=== PATIENT | female | born 1990 | race Caucasian/White ===

== ENCOUNTER 2022-02-28 17:12 | Outpatient (REF) | payer BC, SELFPAY ==
[2022-02-28 19:57] LABS: TSH (W/Ref FT4) 1.27 uIU/mL (0.36-3.74)
== END 2022-02-28 17:13 | disposition home or self-care (01) ==
LOC: LBN 17:12
PROVIDERS: Nurse Practitioner Adult Health; PCP Internal Medicine; Visit Provider Internal Medicine
DX: F43.23 Adjustment disorder with mixed anxiety and depressed mood (principal); F41.8 Other specified anxiety disorders
CPT/HCPCS: 84443

== ENCOUNTER 2022-03-28 02:14 | Outpatient (CLI) | payer BC, SELFPAY ==
[2022-03-28 16:20] LABS: HCT 40.9 % (36.0-46.0); HGB 13.8 g/dL (11.2-15.7); MCH 31.9 pg (27.0-33.0); MCHC 33.7 % (32.0-36.0); MCV 95 fL (80-95); MPV 9.2 fL (8.0-11.0); Platelet Count 179 10^3/uL (130-400); RBC 4.32 10^6/uL (3.93-5.22); RDW-SD 41.6 fL; WBC 6.93 10^3/uL (4.4-10.8)
[2022-03-28 16:22] LABS: ALT 16 U/L (14-59); AST 15 U/L (15-37); Albumin 4.3 g/dL (3.4-5.0); Alkaline Phosphatase 56 U/L (46-116); Anion Gap 6.9 mmol/L (3-11); BUN 15 mg/dL (7-18); Bilirubin, Total 0.3 mg/dL (0.2-1.0); CO2 29.1 mmol/L (21.0-32.0); CREATININE 0.7 mg/dL (0.55-1.02); Calcium 8.8 mg/dL (8.5-10.1); Chloride 99 mmol/L (98-107); Glucose 96 mg/dL (74-106); Potassium 3.5 mmol/L (3.5-5.1); Sodium 135 mmol/L (136-145); Total Protein 7.3 g/dL (6.4-8.2)
== END 2022-03-28 02:15 | disposition home or self-care (01) ==
LOC: LBO 02:14
PROVIDERS: PCP Internal Medicine; Visit Provider Internal Medicine
DX: R23.8 Other skin changes (principal); F43.23 Adjustment disorder with mixed anxiety and depressed mood; R23.3 Spontaneous ecchymoses
CPT/HCPCS: 36415; 80053; 85027

== ENCOUNTER 2022-05-28 11:29 | Outpatient (REF) | payer BC, SELFPAY ==
--- NOTE | 2022-05-28 10:45 | PAPFT_PTH ---
PATIENT: Harrison Logan LOC: [facility] U#:[id number] AGE/SX: 32/F ROOM: RE05/28/[address]: Vibha Payne NP : 1990 BED: DIS: 05/28/2022 SPEC #: [id number] RECD: 05/28/22 12:49 STATUS: BILLY REOsmani #: [id number] PATRICIA: 05/28/22 10:[address]: Vibah Payne NP DEPT: [facility] Cytology RECD BY: Ashley Montes ENTERED: 05/28/22 12:49 SP TYPE: PAPFT OT DR: Brittani Moulton APRN Tissues: 1 - CX/ENDOCX FOR PAP SMEARS Procedures: PAP THIN PREP/UVM Screening HPV DNA PROBE Comments: [id number]
== END 2022-05-28 11:30 | disposition home or self-care (01) ==
LOC: LBN 11:29
PROVIDERS: PCP Nurse Practitioner Adult Health; Visit Provider Nurse Practitioner Women's Health
DX: Z12.4 Encounter for screening for malignant neoplasm of cervix (principal); N76.0 Acute vaginitis; Z11.51 Encounter for screening for human papillomavirus (HPV)
CPT/HCPCS: 88142; 87624

== ENCOUNTER → 2023-12-02 02:51 | Outpatient (CLI) | payer BC, SELFPAY ==
--- NOTE | 2023-12-02 08:00 | DI.MAMMO_ITS ---
Exam(s) US BREAST RT COMPLETE MG MAMMO DIAGNOSTIC BI EXAM: MG MAMMO DIAGNOSTIC BI AND COMPLETE RIGHT BREAST ULTRASOUND CLINICAL HISTORY: R breast mass,n63.10 at 6 oclock 2 cm from nipple on rt. TECHNIQUE: BOTH CC AND MLO mammographic images BOTH BREAST were obtained with 3D tomosynthesis techn ique and utilizing computer aided detection (CAD). ALSO spot compression 3D view of right breast. Complete right breast ultrasound was performed including all 4 quadrants as well as the retroareolar region and right axilla. COMPARISON: None. This is a baseline diagnostic mammogram on this 33-year-old patient. Her provide r apparently felt a lump at 6 o'clock position of the right breast. The patient herself claims that she does not feel this lump when she self examines. FINDINGS: DIAGNOSTIC BILATERAL MAMMOGRAM: The fibroglandular pattern is dense, this somewhat decreasing the sensitivity of the mammogram for fi nding hidden underlying lesions. There are no obvious focal spiculated masses nor malignant-appearing microcalcification groups in eit her breast. No significant architectural distortion or skin thickening-traction. COMPLETE RIGHT BREAST ULTRASOUND: There is no evidence of solid or significant cystic lesions in all 4 quadrants of the right breast. No focal findings on ultrasound examination at the 6 o'clock position which is apparently where there is a palpable lump. Scanning of the right axilla is negative for adenopathy. IMPRESSION: 1. Dense bilateral fibroglandular tissue. No obvious radiographic evidence of malignancy. 2. Negative complete right breast ultrasound The patient was informed of the findings and follow-up recommendations by myself prior to leaving the department today. Two-benign findings Breast Density - Category C - Heterogeneously dense Breast density Category C or D implies that the patient has dense breast tissue. Dense breast tissue can make it harder to find cancer on a mammogram. Dense breast tissue is also associated with an incr eased risk of breast cancer. This information about the result of the mammogram report was provided to the patient to raise their awareness. Use this report when you speak with the patient about their risks for breast cancer, which includes their family history. At that time, you may recommend additional screening tests (Ultrasoun d or MRI) as these tests may add significant information. A negative radiographic report should not delay biopsy if a dominant or clinically suspicious mass is present. Up to ten percent of cancers are not identified on mammography. A negative report may reinforce clinical impression. Adenosis and dense breasts may obscure an underlying neoplasm. False positive reports average 6 to 10%. Patient will receive a letter notifying them of these results.
== END ==
PROVIDERS: PCP Nurse Practitioner Adult Health; Visit Provider Nurse Practitioner Adult Health
DX: N63.11 Unspecified lump in the right breast, upper outer quadrant (principal); Z12.31 Encounter for screening mammogram for malignant neoplasm of breast
CPT/HCPCS: 76642; 77062; 77066; G0279

== ENCOUNTER 2024-04-24 01:07 | Outpatient (CLI) | payer BC, SELFPAY ==
--- OUTSIDE RECORDS SUMMARY | 2024-04-24 01:11 | XMS_ITS | Encounter Summary ---
Author Organization [facility] Address [address] [place] [address] Care Team Providers Care Tourist Home Keeper Name Role Phone Unavailable Primary Care Provider Unavailabl e Encounter Details Date Type Department Care Team (Late st Contact Info) Description 03/26/2008 Results Only [facility] [address] [place] [address] May Harris, [facility] [address] [place] [phone] Social History Tobacco Use Types Packs/Day Years Used Date Smoking Tobacco: Never Assessed Sex and Gender Information Value Date Recorded Sex Assigned at Not on file Gender Identity Not on file Sexual Orientation Not on file documented as of this encounter Plan of Treatment Not on file documented as of this encounter Procedures Procedure Name Priority Date/Time Associated Diagnosis Comments CYTOPATHOLOGY Routine 03/26/2008 0:00 EDT documented in this encounter Results * CYTOPATHOLOGY (03/26/2008 0:00 EDT) Pathology Report: CYTOPATHOLOGY REPORT Reports generated via electronic interface contain original data; however they are lacking the format of the original report. Caution should be taken when reading/interpreti ng unformatted reports. Name: ? HARRISON SHANKAR ? Accession #: ? [id number] : ? 1990 (Age: 18) ??F ?Collect Date: ? 03/26/2008 Location: ? [facility] ? Receive Date: ? 03/26/2008 Provider: ?MAY HARRIS ANHYDROUS AMMONIA PRODUCTION SUPERVISOR Copy to: ? Specimen/Source: ?ThinPrep Pap Test, Cervix/Endocervix, processed on [email or web address] Imaging System, with manual evaluation Last Menstrual Period: ? Hormonal/Contracep tive Status: ? Depo-Provera ? SPECIMEN ADEQUACY ? Satisfactory for Evaluation - transformation zone component present GENERAL CATEGORIZATION ? Negative for Intraepithelial Lesion or Malignancy ? Document reviewed and electronically signed by: ? ALEC Mayer(ASCP) ? Report Date: ??03/30/2008 12:50 End of Report MILO SPARKS 03/26/2008 03/26/2008 May Harris ANHYDROUS AMMONIA PRODUCTION SUPERVISOR PATHOLOGY ORDERABLES MILO SPARKS [address] [place] [address] documented in this encounter Visit Diagnoses Not on filedocumented in this encounter
--- OUTSIDE RECORDS SUMMARY | 2024-04-24 01:11 | XMS_ITS | Encounter Summary ---
Author Organization [facility] Address [address] [place] [address] Care Team Providers Care Retail Field Representative Name Role Phone Unavailable Primary Care Provider Unavailabl e Encounter Details Date Type Department Care Team (Late st Contact Info) Description 09/23/2012 Results Only [facility] [phone] Chanda Conner, DO [address] [place] [address] Social History Tobacco Use Types Packs/Day Years Used Date Smoking Tobacco: Never Assessed Sex and Gender Information Value Date Recorded Sex Assigned at Not on file Gender Identity Not on file Sexual Orientation Not on file documented as of this encounter Plan of Treatment Not on file documented as of this encounter Procedures Procedure Name Priority Date/Time Associated Diagnosis Comments SURGICAL PATHOLOGY Routine 09/23/2012 22 :35 EST documented in this encounter Results * SURGICAL PATHOLOGY (09/23/2012 22:35 EST) Pathology Report: SURGICAL PATHOLOGY REPORT Reports generated via electronic interface contain original data; however they are lacking the format of the original report. Caution should be taken when reading/interpreti ng unformatted reports. Name: ? HARRISON SHANKAR ? Accession #: ? [id number] ? : ? 1990 (Age: 22) ??F ? Collect Date: ? 09/23/2012 ? Location: ? [facility] ? Receive Date: ? 09/23/2012 ? Provider: CHANDA CONNER DO Copy to: RISHI CUEVAS MD ? Final Pathologic Diagnosis: ? Gallbladder, cholecystectomy: 1. ?Chronic cholecystitis. 2. ? Cholelithiasis. ?? Document reviewed and electronically signed by: GERRY BRUNO MD Report ??Date: 09/25/2012 18:29 By the signature above, the attending physician certifies that he/she has personally conducted a gross and/or microscopic examination of the described specimens and rendered or confirmed the above diagnosis. Specimen(s) Received: ? Gallbladder Clinical History: ? Cholecystitis Gross Description: ? Received in formalin labelled Harrison Shankar and gallbladder is a 10.5 cm in length by 2.5 cm in diameter gallbladder received partially incised. ??The specimen includes a segment of cystic duct which measures roughly 1.0 cm in length by 0.2 cm in diameter. ??Within the gallbladder are five mixed-type choleliths with the four largest each measuring roughly 2.0 cm in greatest dimension and the fifth one measures 1.0 cm in greatest dimension. ??In addition, there are a couple dozen fragments of mixed-type choleliths which range from 1.5 cm to 0.5 cm in greatest dimension. ??The gallbladder mucosa is velvety, brownlee-red to brownlee-green bile stained. ??The gallbladder wall measures 0.1 cm in thickness. The serosa is bronwlee-red to brownlee-white, hyperemic and generally smooth. ??The cystic duct margin (blue inked and en face) along with sections of upper and lower gallbladder are submitted in one cassette. ??(Taylor Valles)/[facility] End of Report MILO SPARKS 09/23/2012 22:3 5 EST 09/23/2012 22:35 EST Chanda Conner DO PATHOLOGY ORDERABLES Performing Organization Address City/State/[facility] Co de Phone Number MILO [facility] [address] [place] [address] documented in this encounter Visit Diagnoses Not on filedocumented in this encounter
--- OUTSIDE RECORDS SUMMARY | 2024-04-24 01:11 | XMS_ITS | Encounter Summary ---
[facility] [place] [address] Care Team Providers Care Commissioning Engineer Name Role Phone Brittani Moulton APRN Primary Care Provider [phone] Encounter Details Date Type Department Care Team (Latest Contact Info) Description 02/05/2024 Travel Social History Tobacco Use Types Packs/Day Years Used Date Smoking Tobacco: Former Cigarettes Smokeless Tobacco: Never Sex and Gender Information Value Date Recorded Sex Assigned at Not on file Gender Identity Not on file Sexual Orientation Not on file documented as of this encounter Plan of Treatment Upcoming Encounters Date Type Department Care Team (Latest Contact Info) Description 05/15/2024 12:00 PM EDT Hospital Encounter [facility] [place] [address] Hilario White MD [facility] [place] [address] 05/15/2024 12:00 PM EDT - 05/15/2024 2:20 PM EDT Surgery [place] [address] Hilario White MD [facility] [place] [address] REDUCTION MAMMOPLASTY, DAYAN (WRVU 16.03) 05/26/2024 10:00 AM EDT Clinical [place] [address] Scheduled Procedures Name Priority Associated Diagnoses Date/Ti me REDUCTION MAMMOPLASTY, DAYAN (WRVU 16.03) Yes Gender dysphoria 05/15/2024 12:00 PM EDT documented as of this encounter Visit Diagnoses Not on filedocumented in this encounter Care Teams Commissioning Engineer Relationship Specialty Start Date End Date Brittani Moul[place] [address] [place] [address] PCP - General Geriatric Medicine 11/06/23 documented as of this encounter
--- OUTSIDE RECORDS SUMMARY | 2024-04-24 01:11 | XMS_ITS | Encounter Summary ---
Author Organization [facility] Address [address] [place] [address] Care Team Providers Care Arcade Game Technician Name Role Phone Rishi Cuevas MD Primary Care Provider Encounter Details Date Type Department Care Team (Late st Contact Info) Description 02/04/2014 Results Only [facility] - [facility] ([facility] [address] [place], [place] [phone] May Harris, [facility] [address] [place] [phone] Social History Tobacco Use Types Packs/Day Years Used Date Smoking Tobacco: Never Assessed Sex and Gender Information Value Date Recorded Sex Assigned at Not on file Gender Identity Not on file Sexual Orientation Not on file documented as of this encounter Plan of Treatment Not on file documented as of this encounter Procedures Procedure Name Priority Date/Time Associated Diagnosis Comments PAP TEST- RESULT ONLY Routine 02/04/2014 0:00 EDT documented in this encounter Results * PAP TEST- RESULT ONLY (02/04/2014 0:00 EDT) Pathology Report: CYTOPATHOLOGY REPORT * Amended * Reports generated via electronic interface contain original data; however they are lacking the format of the original report. Caution should be taken when reading/interpreti ng unformatted reports. Name: ? HARRISON SHANKAR ? Accession #: ? [id number] : ? 1990 (Age: 23) ??F ?Collect Date: ? 02/04/2014 Location: ? [facility] ? Receive Date: ? 02/05/2014 Provider: ?MAY HARRIS PAPER BAG MAKING MACHINIST Copy to: ?RISHI CUEVAS MD ? Specimen/Source: ?Pap Test, Cervix/Endocervix, ThinPrep Imaging System with manual evaluation Last Menstrual Period: ? Hormonal/Contracep tive Status: ? Intrauterine device: Mirena ? SPECIMEN ADEQUACY ? Satisfactory for Evaluation - transformation zone component present GENERAL CATEGORIZATION ? Negative for Intraepithelial Lesion or Malignancy ? COMMENT ? A report for this sample was originally issued on 02/15/14 @ 13:43. ??That report was issued inadvertently. This report reflects the final report. ? Document reviewed and electronically signed by: ? Jacinta Ponce, [facility](ASCP) ? Report Date: ??02/15/2014 16:58 End of Report MILO SPARKS 02/04/2014 02/05/2014 May Harris PAPER BAG MAKING MACHINIST PATHOLOGY ORDERABLES [facility] [address] [place] [address] documented in this encounter Visit Diagnoses Not on filedocumented in this encounter Care Teams Arcade Game Technician Relationship Specialty Start Date End Date Rishi Cuevas MD [address] [place] [phone] PCP - General 01/26/13 documented as of this encounter
--- OUTSIDE RECORDS SUMMARY | 2024-04-24 01:11 | XMS_ITS | Encounter Summary ---
Author Organization [facility] Address [facility] [address] [place] [address] Care Team Providers Care Mechanic Sound Technician Name Role Phone Brittani Moulton SD Primary Care Provider [phone] Reason for Visit * Consultation (Routine) - Closed Specialty Diagnoses / Procedures Referred By Contbaltazar t Referred To Contact Plastic Surgery Diagnoses Gender dysphoria INTERESTED IN TOP SURGERY Procedures Top surgery F to M [facility] Jessie Ferguson, [address] [address] [facility] [address] [place] [id number] Referral ID Status Reason Start Date Expiration Date V isits Requested Visits Authorized [id number] Closed Consult, Test & Treat PCP Updated and/or Approved 12/17/2023 12/16/2024 1 1 Encounter Details Date Type Department Care Team (Late st Contact Info) Description 02/05/2024 11:30 AM EDT Office [place] [address] Carlos White MD [facility] [place] [address] Gender dysphoria Social History Tobacco Use Types Packs/Day Years Used Date Smoking Tobacco: Former Cigarettes Smokeless Tobacco: Never Tobacco Cessation:Counseling Given: Not Answered Sex and Gender Information Value Date Recorded Sex Assigned at Not on file Gender Identity Not on file Sexual Orientation Not on file documented as of this encounter Last Filed Vital Signs Vital Sign Reading Time Taken Comments Blood Pressure - - Pulse - - Temperature - - Respiratory Rate - - Oxygen Saturation - - Inhaled Oxygen Concentration - - Weight 70.3 kg (155 lb) 02/05/2024 11:30 AM EDT Height 177.8 cm (5' 10) 02/05/2024 11:30 AM EDT Body Mass Index 22.24 02/05/2024 11:30 AM EDT documented in this encounter Patient Instructions * Patient Instructions* Jovanna Junior RN - 02/05/2024 11:30 AM EDT Images from the original note were not included. Preoperative Instructions You have been scheduled to have plastic surgery. The instructions below are specific to your procedure. Marijuana and Surgery Did you know that marijuana use can impact your surgery and post-surgery success? Marijuana affects many parts of the body. These effects can impact your surgery through the following ways: Respiration: Marijuana affects the airways making it harder to place a breathing tube for anesthesia. Marijuana also affects the lungs and can cause wheezing, coughing, and chronic bronchitis. Cardiac effects: Marijuana affects heart rate and blood pressure and has the potential to increase risks of a heart attack and/or stroke. Pain management: Marijuana may interfere with pain control and the amount of pain medication neededto provide relief following an operation. You should discuss with your surgical team if you are using any form of marijuana or cannabis products. It can affect the outcome of your surgery. It is recommended to stop using marijuana products 72 hours before surgery. Can marijuana affect pain control after surgery? Patients with previous injuries who used marijuana before surgery reported higher amounts of pain. Higher dosages of opioids were used for a longer time after surgery to control pain, when compared to those who did not use marijuana. 7 Chronic marijuana use was associated with higher opioid use forpain relief compared with occasional marijuana users.7 CBD gel patches applied to the skin can reduce pain and itching in patients with peripheral neuropathy (pain at the nerve site).8 Gels containing CBD and a combination of CBD and THC had mixed results in decreasing pain in patients with cancer. Patients with cancer reported decreased neuropathic (nerve) pain after using cannabis compared withpatients who did not use marijuana.9 When should I stop using marijuana before surgery? The effects of marijuana peak at approximately 1 hour and can last 2-4 hours.10 Marijuana: Increases stress on the heart, and the chance for heart attacks and strokes in young, chronic users. It can cause lung complications such as airway obstruction and the need for higher doses of anesthesia. If you are having surgery, you should not use cannabis products within 72 hours of general anesthesia.10 Let your surgeon know if you are having difficulty stopping marijuana. You may be irritable, angry,nervous, and sleep deprived. You may have less appetite, feel depressed or motta, and have tremors,sweating, fever, chills, and headache. If you feel you are addicted to marijuana: Work with your surgical team to meet with an addiction counselor. Call the Substance Abuse and Mental Health Services Administration ([facility]) National Addiction Hotline for help at 7-206-785-IEDR (5985). The call is free, confidential, and someone is available 24 hours per day. If you are a smoker, we ask that you stop at least 2 months prior to your surgical date and remain nicotine free for at least a month after surgery. Smoking can impair healing and increase your chance of infection. Due to a strong risk for delayed healing, we will preform a CO2 test on the day of your surgery to test for byproducts of smoking.If the test is positive your surgery will be cancelled. Two Weeks prior to Surgery Do not take medications containing Ibuprofen. Do not take any anti-steroidal's such as Advil, Aleve, Celebrex, Daypro, Indocin, Midol, Motrin, Naproxen, Nuprin and Toradol. These medications increaseyour risk of bleeding. You may resume taking any of these medications 48 hours after surgery. Stop Vitamin E, Garlic supplements, Ginseng, Fish Oil tablets, Ginkgo and Saray's Wort and any other herbals. You may resume taking 48 hours after surgery. If you need medication for pain, you may take Tylenol or extra strength Tylenol during this two week period. Medication Specific Instructions None One Week prior to Surgery Do not take any Aspirin or aspirin containing products for the 1 week leading up to surgery. You may resume taking 48 hours after surgery. Please call if you feel ill, have cold or fever, have a rash or breaks in the skin near your surgical site. Stay hydrated. Avoid alcohol and recreational drugs Three Days before Surgery Do not shave near your surgical site One Day before Surgery Shower the night before and the morning of surgery using an antibacterial soap (Dial or Lever 2000)or Hibiclens wash The Same Day Surgery Team will call you the business day before your surgery to give you instructions specific to your procedure and your surgical time. Generally, you will be asked not to eat any solids after midnight. You are allowed clear liquids (water, amilcar gosia, apple juice, black coffee andplain tea) until 2 hours prior to your surgery. Day of Surgery A haul driver is required at time of discharge. If you are a Same Day procedure and do not have a driveryour surgery will be canceled. DO NOT wear any jewelry, makeup, nail egyptian or artificial nails the day of surgery. DO NOT apply any lotions, powders or deodorants on or near the surgical site the day of surgery. Do wear comfortable, loose fitting clothes. Anesthesia will meet with you the morning of surgery. They will perform an assessment and review your history with you. Contact Information: During regular office hours (Saturday- Saturday, non-holiday 8:00 am- 5:00 pm) For an appointment or insurance questions For questions pertaining to your surgical date [phone] For nursing related questions [phone] On weekends, holidays or after office hours: Call [phone] and ask the sandfill operator surface to page the Plastic Surgery Resident credit collections clerk. Plastic surgery Clinic fax number: [phone] JUD DRAIN CARE INSTRUCTIONS General Information: Drains help to keep fluid from collecting by removing the extra blood and fluid from under the skin. A drain is temporary. It stays in place until the drainage has slowed down or stopped. Your doctoror nurse will decide when each drain should be removed: This is usually after each drain has 30cc or less in 24 hours for 2 days in a row. When this happens, you should call the General Surgery Clinic to schedule an appointment with the nurses to have it/them removed. This is usually not painful and only takes a few seconds. How do I care for the drains at home? Pin your drains to your clothing by using a safety pin through the plastic loop on the top of the bulb. If the drain is not attached to your clothing, it may pull out from under your skin. Also, a drain usually feels more comfortable when it???s attached. To care for the drain at home, you will have to empty the drain, ???strip?? the drain tubing, and change the dressing if applicable. See the following pages for instructions on how to do this. What problems may I have with my drain? The bulb is not compressed- The bulb may not be squeezed tightly enough, the plug may not be closedsecurely, or the tube has slipped out a bit and is leaking. Follow the instructions on how to emptythe drain. If the bulb remains expanded, then notify your doctor or nurse during business hours. No drainage or sudden decrease in amount of drainage- This is usually due to clots in the drain. Follow the instructions on how to strip the drain tubing. The tube accidentally falls out- If this happens, place a dry gauze dressing over the drain site and notify your doctor or nurse during business hours. Increased redness, swelling, or heat around the tube insertion site- This may be a sign of infection. Take your temperature: if it is higher than 101F or 38.8C, call your doctor or nurse immediately.Otherwise, notify your doctor or nurse during business hours and keep the dressing clean and dry. Post-Surgical Drain Care: After surgery, you will have one or two drains, called a Roque-Julien (JUD) drain, placed near the incision. This device collects fluid, under suction, from your surgical area. The drain promotes healing and recovery, and reduces the chance of infection. The drain will be in place until the drainage slows enough for your body to reabsorb fluid on its own. While you are hospitalized the nursing staff will care for the drain and teach you to continue to do so at home. How to Empty Your JUD Drain Note: Wash your hands thoroughly before emptying your drain(s). Have the plastic measuring cup from the hospital ready to collect and measure the drainage. Please measure the output at the same two times every 24 hours and record the amount. Unpin the drain from your clothing. Open the top of the drain. Turn the drain upside down and squeeze the contents of the bulb into themeasuring cup. Be sure to empty the bulb as completely as possible. Flush the contents in the toilet. Use the drain output log chart to record the amount of drainage twice a day or any time the bulb isfull. Record the total for 24 hours for each drain you have. If you have more than one drain, remember to record the drainage from each drain separately. To prevent infection, do not let the stopper or top of the bottle touch the measuring cup or any other surface. Use one hand to squeeze all of the air from the drain. With the drain still squeezed, use your other hand to replace the top. This creates the suction necessary to remove the fluids from your body. Pin the drain back on your clothing to avoid pulling it out accidently. Wash your hands again. Remember to wash your hands before and after the procedure to reduce the risk of infection. Stripping the Tube Often the tube may become blocked with products of healing or clot. If you do not have drainage, then: Hold the tube near where it is inserted in to the skin with your one hand. Use the other hand to hold a pencil and gently squeeze the tubing with the pencil while moving it down toward the drain away from your skin. This forces the more sold material into the bulb for better drainage. Repeat as necessary to start the draining again. Removal of the Tube The tube may be removed once a single tube output is less than 30cc (1 oz.) for 24 hours. Please call the office if the output becomes thicker or has a bad odor. Roque-Julien Drainage Record NAME: Date of Surgery: Date: Time: If more than one drain, which one: Drainage Amount (per drain) Total Amount (per drain; in 24 hours) documented in this encounter Progress Notes * Carlos White MD - 02/05/2024 11:30 AM EDT Plastic Surgery Consultation Note Carlos White MD. PCP: Brittani Moulton APRN CC: gender affirming top surgery Gender: non-binary Patients identifying pronouns: They/Them HPI: I met with Harrison Mayen Logan today for the first time regarding gender affirming top surgery. They arehere in consultation at the request of Jessie Ferguson CNM. The patient was unaccompanied for today'svisit. Patient reports that they have been transitioning medically for 19 months. They have been thinking about having top surgery for the past 4 years. They note that their pectoral muscles are slightly more pronounced since starting testosterone. They deny any family history of breast cancer. They have had a mammogram which was normal. They do not wish to keep their nipples. They report that they have chronic hives for 9 months. They have seen an materials specialist for who believe that they are caused by stress. They report having asthma but have not needed to use their rescue inhaler. They are not currently working with a mental health therapist but sees their PCP regularly. The patient is otherwise healthy. No heart, lung, liver, kidney, hepatitis, diabetes, thyroid, seizure issues, bleeding or blood clotting disorder. The patient has had surgeries in the past, with no anesthesia complications. They are a former tobacco user but do endorse some use of smoking marijuana. They are planning on switching to using edibles only. 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 Patient has a letter of support in their chart. Past Medical History: Diagnosis Date Urticaria No past surgical history on file. Exam: Ht 177.8 cm (5' 10) Wt 70.3 kg (155 lb) BMI 22.24 kg/m?? In no acute distress C cup size breasts Grade II ptosis Slight nipple retraction on left Nipples are sensate No obvious mass in either breast or axilla No obvious axillary rolls Tattoos over upper epigastrium and xyphoid which may be impacted by surgery Upper chest tattoos which should not be impacted by surgery Measurements L R SN-N (cm) 23.5 cm 24 cm IMF-N (cm) 8 cm 8 cm Assessment: Harrison Logan with gender identity disorder here to discuss gender affirming top surgery. We discussed options for treatment focusing on different techniques used in mastectomy includingcircum-areola approach and transverse breast amputation with FNG. We discussed pro's and con's of each technique. I explained that typically we remove the nipple and areola and place them back on as a FNG. Regardless of what we do they will not have normal feeling in the nipples, as the nerves fromthe nipples come up through the breast tissue which are severed during the mastectomy. I have recommended the double incision technique. We discussed recovery expectations including drain placement and need for compression garment. I recommended they plan for 2-3 weeks off from work. Post- operative restrictions include no lifting, pushing, or pulling more than 5 lbs for 6 weeks. Walking is fine and encouraged. We discussed that theyshould expect 70% of their result at 3 month's post op. Risks of proposed surgery was carefully reviewed including pain, bleeding, scarring, infection, healing problems, loss of skin or nipple graft, absent nipple sensation, asymmetry, hematoma, seroma, persistent dysphoria, poor cosmetic outcome, need for revision or touch up, and motor and/or sensory nerve injury. Patient is aware that this is an irreversible procedure. Photos were obtained with informed signed consent. Plan: Schedule surgery. Letter of support- in media (external correspondence 12/16/23) Surgical Grid: Timeframe: Pending insurance approval/per patient's request Duration: 2 hours Diagnosis: Gender identity disorder Procedure: Mastectomy for F:M transition without nipple preservation, double incision technique CPT: 88622 Anatomic location: Chest OR Location: [facility] F/U: 1 week with NSO for drain removal PAT: H+P DOS Need lighted retractor Estee Gonzalez am acting as scribe for Dr. White. All work documented was performed by Dr. White. ICARLOS MD, performed the services which were documented by the scribe, and I agree withthe accuracy of the documentation in this encounter. documented in this encounter Plan of Treatment Upcoming Encounters Date Type Department Care Team (Latest Contact Info) Description 05/15/2024 12:00 PM EDT Hospital Encounter Out[place] [address] Carlos White MD [facility] [place] [address] 05/15/2024 12:00 PM EDT - 05/15/2024 2:20 PM EDT Surgery Outpatient [place] [address] Carlso White MD [facility] [place] [address] REDUCTION MAMMOPLASTY, DAYAN (WRVU 16.03) 05/26/2024 10:00 AM EDT Clinical [place] [address] Scheduled Orders Name Type Priority Associated Diagnoses Orde r Schedule SURGICAL CASE REQUEST: REDUCTION MAMMOPLASTY, DAYAN (WRVU 16.03) Procedures Routine Gender dysphoria Ordered: 02/05/2024 Scheduled Procedures Name Priority Associated Diagnoses Date/Ti me REDUCTION MAMMOPLASTY, DAYAN (WRVU 16.03) Yes Gender dysphoria 05/15/2024 12:00 PM EDT documented as of this encounter Visit Diagnoses Diagnosis Gender dysphoria Gender identity disorder in children Gender dysphoria Gender identity disorder in children documented in this encounter Care Teams Mechanic Sound Technician Relationship Specialty Start Date End Date Brittani [place] [address] PCP - General Geriatric Medicine 11/06/23 documented as of this encounter
--- OUTSIDE RECORDS SUMMARY | 2024-04-24 01:11 | XMS_ITS | Encounter Summary ---
Author Organization [facility] Address [address] [place] [address] Care Team Providers Care Gas Station Clerk Name Role Phone Obey Null MD Primary Care Provider [phone] Encounter Details Date Type Department Care Team (Late st Contact Info) Description 05/29/2022 Lab Requisition [facility] Pathology & Laboratory Medicine - [address] [address] Vibha Payne, GLAZE SUPERVISOR [address] [facility] [place] [address] Encounter for other general examination Social History Tobacco Use Types Packs/Day Years Used Date Smoking Tobacco: Never Assessed Sex and Gender Information Value Date Recorded Sex Assigned at Not on file Gender Identity Not on file Sexual Orientation Not on file documented as of this encounter Plan of Treatment Not on file documented as of this encounter Procedures Procedure Name Priority Date/Time Associated Diagnosis Comments PAP TEST Today 05/28/2022 10:45 EDT Encounter for other general examination HPV DNA DETECTION WITH GENOTYPING, PCR Today 05/28/2022 10:45 EDT Encounter for other general examination documented in this encounter Results * HUMAN PAPILLOMAVIRUS (HPV) DETECTION-HIGH RISK TYPES (05/28/2022 10:45 EDT) HPV other High Risk types, PCR Negative Negative 06/06/2022 20:09 EDT [facility] Comment:No E6 or E7 mRNA is detected from HPV types 16,18,31,33,35,39,45,51,52,56,58,59,66, and 68 by college recruiter mediated amplification. Papanicolaou smear specimen (specimen) CERVIX UTERI STRUCTURE / Unknown 05/28/2022 10:45 EDT 06/05/2022 14:00 EDT Vibha Payne SD MICROBIOLOGY - GE NERAL ORDERABLES [facility] [address] [place] [id number] * PAP TEST (05/28/2022 10:45 EDT) Specimens A. Cervix and/or Endocervix , ThinPrep Imaging System with Manual Evaluation 06/06/2022 20:09 T [facility] Specimen Adequacy Satisfactory for Evaluation - transformation zone component present 06/06/2022 20:09 [facility] General Categorization Negative for intraepithelial lesion or malignancy 06/06/2022 20:09 [facility] Descriptive Diagnosis Shift in sarahi present suggestive of bacterial vaginosis. 06/06/2022 20:09 [facility] Attestation . 06/06/2022 20:09 [facility] at 2009 Clinical History See below 06/06/20 20:09 [facility] HPV The result for the Human Papillomavirus (HPV) Detection-High Risk Types is Negative. No E6 or E7 mRNA is detected from HPV types 16,18,31,33,35,39 ,45,51,52,56,58,5 9,66, and 68 by college recruiter mediated amplification.Dorcas ting was performed on specimen [id number] and was resulted on 06/06/20222004 EDT by MAGUI, LAB INSTRUMENT RESULTS IN 06/06/2022 20:09 T [facility] Performing Lab [facility] 06/06/2022 20:09 T [facility] Scanned Images 06/06/2022 20:09 T [facility] Papanicolaou smear specimen (specimen) CERVIX UTERI STRUCTURE / Unknown 05/28/2022 10:45 EDT 05/29/2022 10:29 EDT Vibha Payne GLAZE SUPERVISOR PATHOLOGY ORDERAB LES [facility] [address] [place] [address] documented in this encounter Visit Diagnoses Diagnosis Encounter for other general examination documented in this encounter Care Teams Gas Station Clerk Relationship Specialty Start Date End Date Obey Null MD [address] [place] [id number] PCP - General 01/26/13 documented as of this encounter
--- OUTSIDE RECORDS SUMMARY | 2024-04-24 01:11 | XMS_ITS | Encounter Summary ---
Author Organization [facility] Address [address] [place] [address] Care Team Providers Care Photolith Operator Name Role Phone Unavailable Primary Care Provider Unavailabl e Encounter Details Date Type Department Care Team (Late st Contact Info) Description 04/22/2007 Results Only [facility] - [facility] conversion [address] [place] [address] May Harris, [facility] [address] [place] [phone] Social History Tobacco Use Types Packs/Day Years Used Date Smoking Tobacco: Never Assessed Sex and Gender Information Value Date Recorded Sex Assigned at Not on file Gender Identity Not on file Sexual Orientation Not on file documented as of this encounter Plan of Treatment Not on file documented as of this encounter Procedures Procedure Name Priority Date/Time Associated Diagnosis Comments CYTOPATHOLOGY Routine 04/22/2007 0:00 EDT documented in this encounter Results * CYTOPATHOLOGY (04/22/2007 0:00 EDT) Pathology Report: CYTOPATHOLOGY REPORT Reports generated via electronic interface contain original data; however they are lacking the format of the original report. Caution should be taken when reading/interpreti ng unformatted reports. Name: ? HARRISON SHANKAR ? Accession #: ? [id number] : ? 1990 (Age: 17) ??F ?Collect Date: ? 04/22/2007 Location: ? [facility] ? Receive Date: ? 04/23/2007 Provider: ?MAY HARRIS APPLICATION PACKAGING CONSULTANT Copy to: ? Specimen/Source: ?ThinPrep Pap Test, Cervix/Endocervix, processed on [employer] ThinPrep Imaging System, with manual evaluation Last Menstrual Period: ? Hormonal/Contracep tive Status: ? Depo-Provera Other: ? HPVA - HPV testing requested if ASC-US on the current ThinPrep Pap test. ? SPECIMEN ADEQUACY ? Satisfactory for Evaluation - transformation zone component present GENERAL CATEGORIZATION ? Negative for Intraepithelial Lesion or Malignancy ? Document reviewed and electronically signed by: ? ALEC Mayer(ASCP) ? Report Date: ??04/28/2007 14:41 End of Report MILO SPARKS 04/22/2007 04/23/2007 May Harris APPLICATION PACKAGING CONSULTANT PATHOLOGY ORDERABLES Performing Organization Address City/State/[facility] Co de Phone Number MILO SPARKS [address] [place] [address] documented in this encounter Visit Diagnoses Not on filedocumented in this encounter
--- OUTSIDE RECORDS SUMMARY | 2024-04-24 01:11 | XMS_ITS | Encounter Summary ---
Author Organization [facility] Address [address] [place] [address] Care Team Providers Care Machine Assembler For Puller Over Name Role Phone Obey Null MD Primary Care Provider [phone] Encounter Details Date Type Department Care Team (Late st Contact Info) Description 04/26/2016 Results Only [facility] [phone] May Harris, [facility] [address] [place] [phone] Social History Tobacco Use Types Packs/Day [...] Diagnosis Comments PAP TEST- RESULT ONLY Routine 04/26/2016 0:00 EDT documented in this encounter Results * PAP TEST- RESULT ONLY (04/26/2016 0:00 EDT) Pathology Report: CYTOPATHOLOGY REPORT Reports generated via electronic interface contain original data; however they are lacking the format of the original report. Caution should be taken when reading/interpreti ng unformatted reports. Name: ? SHANKARHARRISON ? Accession #: ? [id number] ? : ? 1990 (Age: 26) ??F ?Collect Date: ? 04/26/2016 ? Location: ? [facility] ? Receive Date: ? 04/27/2016 ? Provider: MAY HARRIS SCADA ENGINEER Copy to: JAY KOHLI MD ? Final Report SPECIMEN ADEQUACY ? Satisfactory for Evaluation - transformation zone component present GENERAL CATEGORIZATION ? Negative for Intraepithelial Lesion or Malignancy ?? Hormonal/Contracep tive status: Intrauterine device: Mirena Previous Gynecologic Pathology: ASC-US: pap 2014 HPV: + 2014 Specimen/Source: ??Pap Test, Cervix/Endocervix, ThinPrep Imaging System with manual evaluation Document reviewed and electronically signed by: ? Anayeli Mccann, CT(ASCP) ? Report ??Date: 05/09/2016 12:27 HPV with Pap Test ? Date Ordered: ? 05/08/2016 ? Status: ?? Signed Out ?Date Complete: ? 05/11/2016 ? By: ??System Interface ? Date Reported: ? 05/11/2016 ? Interpretation RESULT: Negative for HPV. No E6 or E7 mRNA is detected from HPV types 16,18,31,33,35, 39,45,51,52,56,58, 59,66, and 68 by steam and power supervisor mediated amplification. Comments Document reviewed and electronically signed by: ? System Interface ? Report date: 05/11/2016 By the signature above, the attending physician certifies that he/she has personally conducted a gross and/or microscopic examination of the described specimens and rendered or confirmed the above diagnosis. End of Report [facility] 04/26/2016 04/27/2016 May Harris SCADA ENGINEER PATHOLOGY ORDERABLES [facility] [address] [place] [address] documented in this encounter Visit Diagnoses Not on filedocumented in this encounter Care Teams Machine Assembler For Puller Over Relationship Specialty Start Date End Date Obey Null MD [address] [place] [phone] PCP - General 01/26/13 documented as of this encounter
--- OUTSIDE RECORDS SUMMARY | 2024-04-24 01:11 | XMS_ITS | Clinical Summary ---
Author Organization [facility] Address [address] [place] [address] Care Team Providers Care Grades 1 Thru 6 Home Teacher Name Role Phone Obey Null MD Primary Care Provider [phone] Social History Tobacco Use Types Packs/Day Years Used Date Smoking Tobacco: Never Assessed Sex and Gender Information Value Date Recorded Sex Assigned at Not on file Gender Identity Not on file Sexual Orientation Not on file Plan of Treatment Health Maintenance Due Date Last Done Comments Hepatitis C Screen 1990 Hepatitis B Vaccine (1 of 3 - 19+ 3-dose series) 02/19 COVID-19 Vaccine (2022- season) 2023 Care Teams Grades 1 Thru 6 Home Teacher Relationship Specialty Start Date End Date Obey Null MD [address] [place] [phone] PCP - General 01/26/13
--- OUTSIDE RECORDS SUMMARY | 2024-04-24 01:11 | XMS_ITS | Encounter Summary ---
Author Organization [facility] Address [address] [place] [address] Care Team Providers Care Automotive Assembler Name Role Phone Unknown, Provider Primary Care Provider Encounter Details Date Type Department Care Team (Late st Contact Info) Description 01/19/2013 Results Only [facility] - [facility] ([facility] [address] [place] [address] May Harris, [facility] [address] [place] [phone] Social History Tobacco Use Types Packs/Day [...] Diagnosis Comments PAP TEST- RESULT ONLY Routine 01/19/2013 0:00 EDT documented in this encounter Results * PAP TEST- RESULT ONLY (01/19/2013 0:00 EDT) Pathology Report: CYTOPATHOLOGY REPORT Reports generated via electronic interface contain original data; however they are lacking the format of the original report. Caution should be taken when reading/interpreti ng unformatted reports. Name: ? HARRISON SHANKAR ? Accession #: ? [id number] ? : ? 1990 (Age: 22) ??F ?Collect Date: ? 01/19/2013 ? Location: ? [facility] ? Receive Date: ? 01/20/2013 ? Provider: MAY HARRIS DIRECTOR ORGANIZATIONAL Copy to: RISHI CUEVAS MD ? Final Report SPECIMEN ADEQUACY ? Satisfactory for Evaluation - transformation zone component present GENERAL CATEGORIZATION ? Epithelial Cell Abnormality INTERPRETATION ? Squamous Cell Abnormality - Atypical squamous cells, undetermined significance (ASC-US). EDUCATIONAL NOTES/RECOMMENDATI ONS ? [facility] recommends following ASCCP's 2012 Updated Consensus Guidelines for the Management of Abnormal Cervical Cancer Screening Tests and Cancer Precursors (JLGTD, 2013; 17(5):S1-S27). ??Consensus guidelines are available online at www.asccp.org. Last Menstrual Period: 12/08/12 Hormonal/Contracep tive status: Yes: nuva ring continious Specimen/Source: ??Pap Test, Cervix/Endocervix, ThinPrep Imaging System with manual evaluation Document reviewed and electronically signed by: ? JUSTINO BOSTON MD ? Report ??Date: 01/23/2013 11:52 HPV with Pap Test ? Date Ordered: ? 01/23/2013 ? Status: ?? Signed Out ?Date Complete: ? 01/26/2013 ? By: ??System Interface ? Date Reported: ? 01/26/2013 ? Interpretation RESULT: Negative for HPV. No E6 or E7 mRNA is detected from HPV types 16,18,31,33,35, 39,45,51,52,56,58, 59,66, and 68 by adjuster leader mediated amplification. Comments Document reviewed and electronically signed by: ? System Interface ? Report date: 01/26/2013 By the signature above, the attending physician certifies that he/she has personally conducted a gross and/or microscopic examination of the described specimens and rendered or confirmed the above diagnosis. End of Report [facility] 01/19/2013 01/20/2013 May Harris DIRECTOR ORGANIZATIONAL PATHOLOGY ORDERABLES [facility] [address] [place] [address] documented in this encounter Visit Diagnoses Not on filedocumented in this encounter Care Teams Automotive Assembler Relationship Specialty Start Date End Date Unknown, Provider, PCP - General 09/25/12 01/25/13 documented as of this encounter
--- OUTSIDE RECORDS SUMMARY | 2024-04-24 01:11 | XMS_ITS | Encounter Summary ---
Author Organization [facility] [place] [address] Care Team Providers Care Drafter (Cad) Electrical Name Role Phone Brittani Moulton APRN Primary Care Provider [phone] Encounter Details Date Type Department Care Team (Latest Contact Info) Description 12/04/2023 Travel Social History Tobacco Use Types Packs/Day Years Used Date Smoking Tobacco: Never Smokeless Tobacco: Never Sex and Gender Information Value Date Recorded Sex Assigned at Not on file Gender Identity Not on file Sexual Orientation Not on file documented as of this encounter Plan of Treatment Upcoming Encounters Date Type Department Care Team (Latest Contact Info) Description 05/15/2024 12:00 PM EDT Hospital Encounter [place] [address] Hilario White MD [facility] [place] [address] 05/15/2024 12:00 PM EDT - 05/15/2024 2:20 PM EDT Surgery [place] [address] Hilario White MD [facility] [place] [address] REDUCTION MAMMOPLASTY, DAYAN (WRVU 16.03) 05/26/2024 10:00 AM EDT Clinical Support [place] [address] Scheduled Procedures Name Priority Associated Diagnoses Date/Ti me REDUCTION MAMMOPLASTY, DAYAN (WRVU 16.03) Yes Gender dysphoria 05/15/2024 12:00 PM EDT documented as of this encounter Visit Diagnoses Not on filedocumented in this encounter Care Teams Drafter (Cad) Electrical Relationship Specialty Start Date End Date Brittani [place] [address] [place] [address] PCP - General Geriatric Medicine 11/06/23 documented as of this encounter
--- OUTSIDE RECORDS SUMMARY | 2024-04-24 01:11 | XMS_ITS | Clinical Summary ---
Author Organization [facility] [place] Address [address], [place] [address] Care Team Providers Care Finisher Hot Strip Name Role Phone Unavailable Primary Care Provider Unavailabl e Source Comments NOTE: The information displayed by Care Everywhere is extracted from the complete medical record and may not identify all current or past patient conditions.[facility] Allergies No known active allergies Medications Medication Sig Dispensed Refills Start Date End Date Status MULTIVITAMIN ORAL None Entered 0 Activ e Albuterol (VENTOLIN HFA) 90 mcg/actuation Inhl HFAAIndications:INTER MITTENT ASTHMA, CONTROLLED INHALE 2 PUFFS ORALLY EVERY 4 HOURS NEEDED FOR SHORTNESS OF BREATH. 100 DAYS SUPPLY IS 1 CANISTER 18 0 07/10/2018 Active Active Problems Problem Noted Date Diagnosed Date [facility] CARE COORDINATION 05/28/2018 Overview: [facility] Care Coordination-[facility]: Do Not remove Send Referral to: CONY Larose PRESENCE OF IUD 05/02/2017 Overview: Placed December 2012 INTERMITTENT ASTHMA, CONTROLLED 05/02/2017 FHX OF MELANOMA 05/02/2017 Overview: In uncle Immunizations Name Administration Dates Next Due PPSV23 (Pneumococcal polysaccharide) 05/02/2017 Tdap (ADACEL) (Tetanus, diph theria, acellular pertussis) 05/02/2017 Family History Medical History Relation Comments No Known Problem Father Dementia Grandfather Liver Cancer Grandmother als Mother No Known Problem Sister Melanoma Uncle Breast Cancer None Colon Cancer None Ovarian Cancer None Uterine Cancer None Relation Status Comments Father Grandfather Grandmother Mother ALS Sister Uncle Social History Tobacco Use Types Packs/Day Years Used Date Smoking Tobacco: Former Cigarettes 0.3 Smokeless Tobacco: Never Alcohol Use Standard Drinks/Week Comments Yes 2 (1 standard drink = 0.6 oz pur e alcohol) Substance Use Types Use/Week Comments Yes 3 occasional francisco johny Sex and Gender Information Value Date Recorded Sex Assigned at Not on file Gender Identity Not on file Sexual Orientation Not on file Last Filed Vital Signs Vital Sign Reading Time Taken Comments Blood Pressure 95/43 07/10/2018 10:33 AM PDT Pulse 77 07/10/2018 10:33 AM PDT Temperature 36.6 ??C (97.9 ??F) 07/10/2018 10:30 AM P DT Respiratory Rate - - Oxygen Saturation 99% 07/10/2018 10:30 AM PDT Inhaled Oxygen Concentration - - Weight 68 kg (150 lb) 03/26/2018 10:39 AM PDT Height 177.8 cm (5' 10) 07/10/2018 10:30 AM PDT Body Mass Index 21.52 03/26/2018 10:39 AM PDT Plan of Treatment Not on file Medical Devices Implanted Type Area Human Capital Consultant Device Identifier Shelf Expiration Date Model / Serial / Lot Iud Mirena- [id number] Implanted:Qty : 1 on 03/26/2018 by Linda Mccoy) INFORMATION TECHNOLOGY ADVISOR Implant Uterus [employer]. 06/06/2020 [id number] / / [id number]
--- OUTSIDE RECORDS SUMMARY | 2024-04-24 01:11 | XMS_ITS | Encounter Summary ---
[place] [address] Care Team Providers Care Medical Coding Specialist Name Role Phone Brittani Moulton APRN Primary Care Provider [phone] Reason for Referral * Allergy Testing (Routine) - Authorized Specialty Diagnoses / Procedures Referred By Contac t Referred To Contact Allergy Diagnoses Idiopathic urticaria Other allergy status, other than to drugs and biological substances Brittani Moulton APRN [address] [place] [address] [facility] [address] [place] [address] Referral ID Status Reason Start Date Expiration Date Visits Requested Visits Authorized [id number] Authorized Consult, Test & Treat PCP Updated and/or Approved 11/06/2023 11/05/2024 6 6 Encounter Details Date Type Department Care Team (Latest Contact Info) Description 11/06/2023 Transcribe Orders eDH Incoming Referrals [phone] Brittani Moulton APRN [address] [place], [place] [address] Idiopathic urticaria; Other allergy status, other than to drugs and biological substances Social History Tobacco Use Types Packs/Day Years [...] PM EDT Hospital Encounter [place]patient [place] [address] Hilario White MD [facility] [place] [address] 05/15/2024 12:00 PM EDT - 05/15/2024 2:20 PM EDT Surgery [place]patient [place] [address] Hilario White MD [facility] [place] [address] REDUCTION MAMMOPLASTY, DAYAN (WRVU 16.03) 05/26/2024 10:00 AM EDT Clinical Support [place] [address] Scheduled Procedures Name Priority Associated Diagnoses Date/Ti me REDUCTION MAMMOPLASTY, DAYAN (WRVU 16.03) Yes Gender dysphoria 05/15/2024 12:00 PM EDT Scheduled Referrals Name Type Priority Associated Diagnoses Orde r Schedule Referral to Allergy Outpatient Referral Routine Idiopathic urticaria Other allergy status, other than to drugs and biological substances Ordered: 11/06/2023 documented as of this encounter Visit Diagnoses Diagnosis Idiopathic urticaria Other allergy status, other than to drugs and biological substances Gender dysphoria Gender identity disorder in children documented in this encounter Care Teams Medical Coding Specialist Relationship Specialty Start Date End Date Brittani Moulton APRN [address] [place] [address] PCP - General Geriatric Medicine 11/06/23 documented as of this encounter
--- OUTSIDE RECORDS SUMMARY | 2024-04-24 01:11 | XMS_ITS | Encounter Summary ---
Author Organization [facility] Address [address] [place] [address] Care Team Providers Care Video Game Animator Name Role Phone Unavailable Primary Care Provider Unavailabl e Encounter Details Date Type Department Care Team (Late st Contact Info) Description 10/03/2009 Orders Only [facility] - [facility] ([facility]) [address] [place], [place] [address] May Harris, [facility] [address] [place] [phone] Social History Tobacco Use Types Packs/Day Years Used Date Smoking Tobacco: Never Assessed Sex and Gender Information Value Date Recorded Sex Assigned at Not on file Gender Identity Not on file Sexual Orientation Not on file documented as of this encounter Plan of Treatment Not on file documented as of this encounter Procedures Procedure Name Priority Date/Time Associated Diagnosis Comments CYTOPATHOLOGY Routine 10/03/2009 0:00 EST documented in this encounter Results * CYTOPATHOLOGY (10/03/2009 0:00 EST) Pathology Report: CYTOPATHOLOGY REPORT ? Reports generated via electronic interface contain original data; ? however they are lacking the format of the original report. ? Caution should be taken when reading/interpreti ng unformatted reports. ? Name: ? HARRISON LOGAN ? Accession #: ? [id number] ? : ? 1990 (Age: 19) ??F ?Collect Date: ? 10/03/2009 ? Location: ? [facility] ? Receive Date: ? 10/04/2009 ? Provider: ?MAY GAVIN SHEET METAL WORKER HELPER ? Copy to: ? Specimen/Source: ?Pap Test, Cervix/Endocervix, ThinPrep Imaging System ? with manual evaluation ? Last Menstrual Period: ? 10/09 ? Hormonal/Contracep tive Status: ? Yes: Nuva Ring ? Other: ? HPVA - HPV testing requested if ASC-US on the current ThinPrep Pap test. ? SPECIMEN ADEQUACY ? Satisfactory for Evaluation ? - transformation zone component present ? GENERAL CATEGORIZATION ? Negative for Intraepithelial Lesion or Malignancy ? Document reviewed and electronically signed by: ? Rosie Wes, CT(ASCP) ? Report Date: ??10/05/2009 10:14 ? End of Report ? [facility] SPARKS 10/03/2009 10/04/2009 May Harris SHEET METAL WORKER HELPER PATHOLOGY ORDERABLES [facility] [address] [place] [address] documented in this encounter Visit Diagnoses Not on filedocumented in this encounter
--- OUTSIDE RECORDS SUMMARY | 2024-04-24 01:11 | XMS_ITS | Clinical Summary ---
Author Organization [facility] Address [facility] [place] [address] Care Team Providers Care Mechanical Operator Name Role Phone Brittani Moulton APRN Primary Care Provider [phone] Allergies Active Allergy Reactions Criticality Noted Date Comments Juniper Tar Shortness Of Breath High 07/05/2022 Mold Extracts Shortness Of Breath High 07/05/2022 Medications Medication Sig Dispensed Refills Start Date End Date Status escitalopram (Lexapro) 10 mg tablet Take 10 mg by mouth daily. Active testosterone (Androgel) 1.62% (20.25 mg/1.25 gram per actuation) transdermal gel PUMP APPLY 4 PUMPS TO SKIN ONCE IN THE MORNING; ALLOW TO DRY FOR 2 HOURS-AVOID CONTACT WITH OTHERS DURING THIS TIME Active Active Problems Problem Noted Date Diagnosed Date Gender dysphoria in adult 10/04/2022 Overview (02/05/2024): Initial testosterone based GAHT apt 07/05/2022. Increased to 4 pumps of Androgel 06/18/2023. Patient is planning top surgery. Encounters Date Type Department Care Team Description 02/05/2024 11:30 AM EDT Office [place] [address] Hilario White MD Gender dysphoria 02/05/2024 Travel from Last 3 Months Family History Medical History Relation Comments Asthma Sister Relation Status Comments Sister Social History Tobacco Use Types Packs/Day Years Used Date Smoking Tobacco: Former Cigarettes Smokeless Tobacco: Never Tobacco Cessation:Counseling Given: Not Answered Sex and Gender Information Value Date Recorded Sex Assigned at Not on file Gender Identity Not on file Sexual Orientation Not on file Last Filed Vital Signs Vital Sign Reading Time Taken Comments Blood Pressure 112/66 12/04/2023 10:09 AM EST Pulse 91 12/04/2023 10:09 AM EST Temperature - - Respiratory Rate - - Oxygen Saturation 97% 12/04/2023 10:09 AM EST Inhaled Oxygen Concentration - - Weight 70.3 kg (155 lb) 02/05/2024 11:30 AM EDT Height 177.8 cm (5' 10) 02/05/2024 11:30 AM EDT Body Mass Index 22.24 02/05/2024 11:30 AM EDT Plan of Treatment Upcoming Encounters Date Type Department Care Team (Latest Contact Info) Description 05/15/2024 12:00 PM EDT Hospital Encounter Outpatient [place] [address] Hilario White MD [facility] [place] [address] 05/15/2024 12:00 PM EDT - 05/15/2024 2:20 PM EDT Surgery Outpatient [place] [address] Hilario White MD [facility] [place] [address] REDUCTION MAMMOPLASTY, DAYAN (WRVU 16.03) 05/26/2024 10:00 AM EDT Clinical [place] [address] Scheduled Procedures Name Priority Associated Diagnoses Date/Ti me REDUCTION MAMMOPLASTY, DAYAN (WRVU 16.03) Yes Gender dysphoria 05/15/2024 12:00 PM EDT Health Maintenance Due Date Last Done Comments HIV screen 02/19/2006 Hepatitis C Screening 02/19/2006 Hepatitis B vaccine (0-59 yrs) (1) 02/19/2007 Tdap adult 02/19/2007 Tetanus vaccine 02/19/2007 HPV test 02/19/2018 PAP Smear 02/19/2018 Covid-19 Vaccine ( - 2022-24 season) 2023 Influenza (Flu) vaccine (1 o f 1 - Influenza standard series) 06/07/2024 Care Teams Mechanical Operator Relationship Specialty Start Date End Date Brittani Moulton APRN [address] [place], [place] [id number] PCP - General Geriatric Medicine 11/06/23
--- OUTSIDE RECORDS SUMMARY | 2024-04-24 01:11 | XMS_ITS | Referral Summary ---
Author Organization [facility] Address [address] [place] [address] Care Team Providers Care Toe Laster Name Role Phone Obey Null MD Primary Care Provider [phone] Social History Tobacco Use Types Packs/Day Years Used Date Smoking Tobacco: Never Assessed Sex and Gender Information Value Date Recorded Sex Assigned at Not on file Gender Identity Not on file Sexual Orientation Not on file Plan of Treatment Not on file Care Teams Toe Laster Relationship Specialty Start Date End Date Obey Null MD [address] [place] [phone] PCP - General 01/26/13
--- OUTSIDE RECORDS SUMMARY | 2024-04-24 01:11 | XMS_ITS | Encounter Summary ---
Author Organization [facility] Address [address] [place] [address] Care Team Providers Care Cemetery Warden Name Role Phone Rishi Cuevas MD Primary Care Provider [phone] Encounter Details Date Type Department Care Team (Late st Contact Info) Description 02/07/2015 Results Only [facility] [phone] May Harris, [facility] [address] [place] [phone] Social History Tobacco Use Types Packs/Day [...] Diagnosis Comments PAP TEST- RESULT ONLY Routine 02/07/2015 0:00 EDT documented in this encounter Results * PAP TEST- RESULT ONLY (02/07/2015 0:00 EDT) Pathology Report: CYTOPATHOLOGY REPORT Reports generated via electronic interface contain original data; however they are lacking the format of the original report. Caution should be taken when reading/interpreti ng unformatted reports. Name: ? HARRISON SHANKAR ? Accession #: ? [id number] ? : ? 1990 (Age: 24) ??F ?Collect Date: ? 02/07/2015 ? Location: ? [facility] ? Receive Date: ? 02/08/2015 ? Provider: MAY HARRIS PHARMACIST IN CHARGE Copy to: RISHI CUEVAS MD ? Final Report SPECIMEN ADEQUACY ? Satisfactory for Evaluation - transformation zone component present GENERAL CATEGORIZATION ? Epithelial Cell Abnormality INTERPRETATION ? Squamous Cell Abnormality - Atypical squamous cells, undetermined significance (ASC-US). EDUCATIONAL NOTES/RECOMMENDATI ONS ? [facility] recommends following ASCCP's 2012 Updated Consensus Guidelines for the Management of Abnormal Cervical Cancer Screening Tests and Cancer Precursors (JLGTD, 2013; 17(5):S1-S27). ??Consensus guidelines are available online at www.asccp.org. Hormonal/Contracep tive status: Intrauterine device: Mirena Specimen/Source: ??Pap Test, Cervix/Endocervix, ThinPrep Imaging System with manual evaluation Document reviewed and electronically signed by: ? GERRY BRUNO MD ? Report ??Date: 02/21/2015 09:25 HPV with Pap Test ? Date Ordered: ? 02/18/2015 ? Status: ?? Signed Out ?Date Complete: ? 02/23/2015 ? By: ??System Interface ? Date Reported: ? 02/23/2015 ? Interpretation RESULT: Positive for high or intermediate risk HPV. E6 OR E7 mRNA from one or more types of HPV types 16,18,31, 33,35,39,45,51,52, 56,58,59,66, and 68 is detected by strategy planning consultant mediated amplification. High and intermediate risk HPV types are associated with most squamous intraepithelial lesions and cervical cancers. Comments Document reviewed and electronically signed by: ? System Interface ? Report date: 02/23/2015 By the signature above, the attending physician certifies that he/she has personally conducted a gross and/or microscopic examination of the described specimens and rendered or confirmed the above diagnosis. End of Report [facility] 02/07/2015 02/08/2015 May Harris PHARMACIST IN CHARGE PATHOLOGY ORDERABLES [facility] [address] [place] [address] documented in this encounter Visit Diagnoses Not on filedocumented in this encounter Care Teams Cemetery Warden Relationship Specialty Start Date End Date Rishi Cuevas MD [address] [place] [address] PCP - General 01/26/13 documented as of this encounter
--- OUTSIDE RECORDS SUMMARY | 2024-04-24 01:11 | XMS_ITS | Encounter Summary ---
Author Organization [facility] Address [address] [place] [address] Care Team Providers Care Ehs Specialist Name Role Phone Unavailable Primary Care Provider Unavailabl e Encounter Details Date Type Department Care Team (Late st Contact Info) Description 03/15/2006 Results Only [facility] - Map conversion [address] [place] [address] May Harris, [facility] [address] [place] [phone] Social History Tobacco Use Types Packs/Day Years Used Date Smoking Tobacco: Never Assessed Sex and Gender Information Value Date Recorded Sex Assigned at Not on file Gender Identity Not on file Sexual Orientation Not on file documented as of this encounter Plan of Treatment Not on file documented as of this encounter Procedures Procedure Name Priority Date/Time Associated Diagnosis Comments CYTOPATHOLOGY Routine 03/15/2006 0:00 EDT documented in this encounter Results * CYTOPATHOLOGY (03/15/2006 0:00 EDT) Pathology Report: CYTOPATHOLOGY REPORT Reports generated via electronic interface contain original data; however they are lacking the format of the original report. Caution should be taken when reading/interpreti ng unformatted reports. Name: ? HARRISON SHANKAR ? Accession #: ? [id number] : ? 1990 (Age: 16) ??F ?Collect Date: ? 03/15/2006 Location: ? [facility] ? Receive Date: ? 03/18/2006 Provider: ?MAY HARRIS STAFF RADIATION THERAPIST Copy to: ? Specimen/Source: ?ThinPrep Pap Test, Cervix/Endocervix, processed on Compario ThinPrep Imaging System, with manual evaluation Last Menstrual Period: ? 02/23/06 Other: ? HPVA - HPV testing requested if ASC-US on the current ThinPrep Pap test. ? SPECIMEN ADEQUACY ? Satisfactory for Evaluation - transformation zone component present GENERAL CATEGORIZATION ? Negative for Intraepithelial Lesion or Malignancy ? Document reviewed and electronically signed by: ? ALEC Mayer(ASCP) ? Report Date: ??03/20/2006 13:51 End of Report MILO SPARKS 03/15/2006 03/18/2006 May Harris STAFF RADIATION THERAPIST PATHOLOGY ORDERABLES Performing Organization Address City/State/[facility] Co de Phone Number MILO SPARKS [address] [place] [address] documented in this encounter Visit Diagnoses Not on filedocumented in this encounter
--- OUTSIDE RECORDS SUMMARY | 2024-04-24 01:11 | XMS_ITS | Encounter Summary ---
Author Organization [facility] Address [facility] [place] [address] Care Team Providers Care Python Programmer Name Role Phone Brittani Moulton APRN Primary Care Provider [phone] Reason for Visit * Reason Comments Allergies * Allergy Testing (Routine) - Authorized Specialty Diagnoses / Procedures Referred By Kalin rojas Referred To Contact Allergy Diagnoses Idiopathic urticaria Other allergy status, other than to drugs and biological substances Brittani Moulton APRN [address] [place] [address] [facility] Allergy [address] [place] [address] Referral ID Status Reason Start Date Expiration Date Visits Requested Visits Authorized [id number] Authorized Consult, Test & Treat PCP Updated and/or Approved 11/06/2023 11/05/2024 6 6 Encounter Details Date Type Department Care Team ([facility] st Contact Info) Description 12/04/2023 10:00 AM EST [place] [phone] Dalia Tierney MD [facility] [place] [address] Chronic idiopathic urticaria; Chronic rhinitis Social History Tobacco Use Types Packs/Day Years Used Date Smoking Tobacco: Never Smokeless Tobacco: Never Tobacco Cessation:Counseling Given: Not [...] EST Inhaled Oxygen Concentration - - Weight 71 kg (156 lb 8 oz) 12/04/2023 10:[address] Height - - Body Mass Index - - documented in this encounter Patient Instructions * Patient Instructions* Dlaia Tierney MD - 12/04/2023 10:00 AM EST Increase cetirizine twice daily documented in this encounter Progress Notes * aDlia Tierney MD - 12/04/2023 10:00 AM EST Images from the original note were not included. [facility] Section of Allergy and Clinical Immunology Date of Service: 12/04/23 Primary Care Provider: Brittani Moulton APRN Patient Age: 33 y.o. 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 She used to live in the [facility], and she noticed that whenever juniper was blooming, +runny nose and dyspnea. She takes cetirizine 5 mg daily. +short of breath 1-2 times a week in the past 4 weeks. Outpatient Medications Marked as Taking for the 12/04/23 encounter (Office Visit) with Dalia Tierney MD Medication Sig Dispense Refill escitalopram (Lexapro) 10 mg tablet Take 10 mg by mouth daily. testosterone (Androgel) 1.62% (20.25 mg/1.25 gram per actuation) transdermal gel PUMP APPLY 4 PUMPSTO SKIN ONCE IN THE MORNING; ALLOW TO DRY FOR 2 HOURS-AVOID CONTACT WITH OTHERS DURING THIS TIME Allergies Allergen Reactions Juniper Tar Shortness Of Breath Mold Extracts Shortness Of Breath Family History Problem Relation Age of Onset Asthma Sister Social History Tobacco Use Smoking status: Never Smokeless tobacco: Never Status: Single. Review of Systems: General: denies any fever, fatigue, chills, unintentional weight gain, night sweats. Eyes: +itchy +red eyes. Denies any ocular discharge, blurriness, dryness. Ears: denies any pain, pressure, fullness, +pruritus, tinnitus Nose: +nasal congestion, +post nasal drip, +sneezing, snoring. Denies a history of nasal polyps, loss of smell Mouth/throat: denies loss of taste, mouth sores, bad breath, itchy mouth, +itchy throat, difficultyswallowing. GI: +heartburn or reflux, food regurgitation, +nausea/vomiting, diarrhea, abdominal pain, constipation. Respiratory: denies any cough, wheezing, +shortness of breath, trouble with exercise, snoring, hemoptysis. Cardiovascular: +chest pain, arrhythmia. : denies any difficulty with urination, dysuria, hematuria, kidney stones. Skin: denies any history of eczema, +hives MSK: denies any muscle aches, joint pains, bone pain. Neurologic: denies any headaches, numbness, weakness, stroke or LOS. Psychiatric: +anxiety +depression. Endocrine: Denies any heat or cold intolerance, excessive thirst or urination. Hematologic: denies easy bruising Environmental History: Pets in the home: dogs (2) and 2 cats. Climate Control: hot water heat Objective: BP 112/66 Pulse 91 Wt 71 kg (156 lb 8 oz) SpO2 97% No data to display Wt Readings from Last 3 Encounters: 12/04/23 71 kg (156 lb 8 oz) ACT score: 24 Gen: awake, alert, no acute distress Head: normocephalic, atraumatic EYES: Conjunctiva not injected or icteric. No discharge. No eyelid edema. ENT: Tympanic membranes clear, no lesions, erythema, or drainage. Normal external ear canals. Nasalpassages show normal mucosa, edematous turbinates bilaterally, no lesions. OP mucosa well hydrated,clear without erythema. No lesions or exudates. No visible OP edema. NECK: supple, symmetric, no masses, trachea midline LYMPH: no submandibular, cervical, or supraclavicular LAD CVS: RRR LUNGS: CTAB, no wheezing or crackles, breathing unlabored ABD: non-distended SKIN: no rashes, normal color, no mottling EXTREMITIES: warm and well-perfused, normal bulk, symmetric ROM. 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 I recommend increasing cetirizine 10 mg twice daily. Plan to check thyroid function and due to travel history, Strongyloides igG. Due to persistent rhinitis, plan to check specific IgE to animal dander. I recommend monitoring dyspnea symptoms. All questions were answered, and patient expressed understanding of the plan. Thank you for the opportunity to participate in the care of your patient. Ongoing follow-up with the patient's primary care physician is recommended and encouraged. If I can provide any further assistance, please do not hesitate to contact me. Next visit (studies planned): follow-up visit in 2 months, sooner if needed. Dalia Ramos MD Dermatologist And Dermatopathologist, [place] [address] [email or web address] documented in this encounter Plan of Treatment Upcoming Encounters Date Type Department Care Team (Latest Contact Info) Description 05/15/2024 12:00 PM EDT Hospital Encounter [place] [phone] Hilario Whiet MD [facility] [place] [address] 05/15/2024 12:00 PM EDT - 05/15/2024 2:20 PM EDT Surgery [place] [address] Hilario White MD [facility] [place] [place] [address] REDUCTION MAMMOPLASTY, DAYAN (WRVU 16.03) 05/26/2024 10:00 AM EDT Clinical Support [place] [address] Scheduled Procedures Name Priority Associated Diagnoses Date/Ti me REDUCTION MAMMOPLASTY, DAYAN (WRVU 16.03) Yes Gender dysphoria 05/15/2024 12:00 PM EDT documented as of this encounter Procedures Procedure Name Priority Date/Time Associated Diagnosis Comments HC THYROID STIMULATING HORMONE, SERUM Routine 12/04/2023 11:06 AM EST Chronic idiopathic urticaria HC VENIPUNCTURE Routine 12/04/2023 11:06 AM EST Chronic idiopathic urticaria HC IGE, TOTAL Routine 12/04/2023 11:06 AM EST Chronic idiopathic urticaria HC ALLERGEN (IGE), LEVEL 1 Routine 12/04/2023 11:06 AM EST Chronic rhinitis HC ALLERGEN (IGE), LEVEL 1 Routine 12/04/2023 11:06 AM EST Chronic rhinitis HC PCH CU INDEX LHR Routine 12/04/2023 1 1:06 AM EST Chronic idiopathic urticaria HC THYROID PEROXIDASE ANTIBODY Routine 12/04/2023 11:06 AM EST Chronic idiopathic urticaria HC ALLERGEN (IGE), LEVEL 1 Routine 12/04/2023 11:06 AM EST Chronic rhinitis HC ALLERGEN (IGE), LEVEL 1 Routine 12/04/2023 11:06 AM EST Chronic rhinitis documented in this encounter Results * Strongyloides IgG (12/04/2023 11:06 AM EST) Strongyloides IgG Negative Negative MA RY [facility] Comment: No detectable levels of IgG antibodies to Strongyloides. Repeat testing in 1-2 weeks if clinically indicated. Test Performed by: [facility] [address] [place] [address] Hydrator: Mookie Becker M.D. Ph.D.; CLIA# [id number] Blood 12/04/2023 11:0 6 AM EST 12/04/2023 3:37 PM EST Narrative Resulting Agency Comment Spec In Lab Dalia Ramos MD CHEMISTRY ORDERAB LES Performing Organization Address [facility]/ZIP Co de Phone Number [facility] [place] [address] * House Dust Mites/D.F., IgE (12/04/2023 11:06 AM EST) Mites/D.F. IgE <0.35 kU/L [facility] Comment: Reference Ranges <0.35 kU/L Class 0: ??Normal 0.35-0.69 kU/L Class 1: ??Low level of allergy, indicative of ongoing sensitization 0.70-3.49 kU/L Class 2: ??Moderate level of allergy, indicative of stronger ongoing sensitization 3.50-17.49 kU/L Class 3: ??High level of allergy, indicative of high level sensitization 17.5-49.9 kU/L Class 4: Very high level of allergy, indicative of very high level sensitization 50.0-100 kU/L Class 5: Very high level of allergy, indicative of very high level sensitization >100 kU/L Class 6: Very high level of allergy, indicative of very high level sensitization Blood 12/04/2023 11:0 6 AM EST 12/05/2023 7:17 AM EST Narrative Resulting Agency Comment Spec In Lab Dalia Ramos MD IMMUNOLOGY ORDERA BLES Performing Organization Address [facility]/ZIP Co de Phone Number [facility] [place] [address] * House Dust Mites/D.P., IgE (12/04/2023 11:06 AM EST) Mites/D.P. IgE <0.35 kU/L [facility] Comment: Reference Ranges <0.35 kU/L Class 0: ??Normal 0.35-0.69 kU/L Class 1: ??Low level of allergy, indicative of ongoing sensitization 0.70-3.49 kU/L Class 2: ??Moderate level of allergy, indicative of stronger ongoing sensitization 3.50-17.49 kU/L Class 3: ??High level of allergy, indicative of high level sensitization 17.5-49.9 kU/L Class 4: Very high level of allergy, indicative of very high level sensitization 50.0-100 kU/L Class 5: Very high level of allergy, indicative of very high level sensitization >100 kU/L Class 6: Very high level of allergy, indicative of very high level sensitization Blood 12/04/2023 11:0 6 AM EST 12/05/2023 7:17 AM EST Narrative Resulting Agency Comment Spec In Lab Dalia Ramos MD IMMUNOLOGY ORDERA [facility] Organization Address City/State/ZIP Co de Phone Number [facility] [place] [address] * Dog Epithelium IgE (12/04/2023 11:06 AM EST) Dog Epi IgE <0.35 kU/L [facility] Comment: Reference Ranges <0.35 kU/L Class 0: ??Normal 0.35-0.69 kU/L Class 1: ??Low level of allergy, indicative of ongoing sensitization 0.70-3.49 kU/L Class 2: ??Moderate level of allergy, indicative of stronger ongoing sensitization 3.50-17.49 kU/L Class 3: ??High level of allergy, indicative of high level sensitization 17.5-49.9 kU/L Class 4: Very high level of allergy, indicative of very high level sensitization 50.0-100 kU/L Class 5: Very high level of allergy, indicative of very high level sensitization >100 kU/L Class 6: Very high level of allergy, indicative of very high level sensitization Blood 12/04/2023 11:0 6 AM EST 12/05/2023 7:17 AM EST Narrative Resulting Agency Comment Spec In Lab Dalia Ramos MD IMMUNOLOGY ORDERA BLES Performing Organization Address [facility] Co de Phone Number [facility] [place] [address] * Cat Epithelium IgE (12/04/2023 11:06 AM EST) Cat Epi IgE <0.35 kU/L [facility] Comment: Reference Ranges <0.35 kU/L Class 0: ??Normal 0.35-0.69 kU/L Class 1: ??Low level of allergy, indicative of ongoing sensitization 0.70-3.49 kU/L Class 2: ??Moderate level of allergy, indicative of stronger ongoing sensitization 3.50-17.49 kU/L Class 3: ??High level of allergy, indicative of high level sensitization 17.5-49.9 kU/L Class 4: Very high level of allergy, indicative of very high level sensitization 50.0-100 kU/L Class 5: Very high level of allergy, indicative of very high level sensitization >100 kU/L Class 6: Very high level of allergy, indicative of very high level sensitization Blood 12/04/2023 11:0 6 AM EST 12/05/2023 7:17 AM EST Narrative Resulting Agency Comment Spec In Lab Dalia Ramos MD IMMUNOLOGY ORDERA BLES Performing Organization Address [facility] Co de Phone Number [facility] [place] [address] * Chronic Urticaria Index (12/04/2023 11:06 AM EST) CU Index <2.6 <10 [facility] Comment: The CU Index(R) test is the second generation Functional Anti-FceR test. ??Patients with a CU Index(R) greater than or equal to 10 have basophil reactive factors in their serum which supports an autoimmune basis for disease. *This test was developed and its performance characteristics determined by [facility]. It has not been cleared or approved by the U.S. Food and Drug Administration. FLAG Interpretation: A = Abnormal, H = High, L = Low Test Performed by: [facility] [address] [place] [address] [address] [place] [address] Blood 12/04/2023 11:0 6 AM EST 12/05/2023 12:29 PM EST Narrative Resulting Agency Comment Spec In Lab Dalia Ramos MD CHEMISTRY ORDERAB LES Performing Organization Address [facility] de Phone Number [facility] [place] [address] * Thyroid peroxidase antibody (12/04/2023 11:06 AM EST) Thyroperox Ab <10 <=34 IU/mL [facility] Blood 12/04/2023 11:0 6 AM EST 12/05/2023 7:17 AM EST Narrative Resulting Agency Comment Spec In Lab Dalia Ramos MD IMMUNOLOGY ORDERA BLES Performing Organization Address [facility] de Phone Number [facility] [place] [address] * Immunoglobulin E (IgE) (12/04/2023 11:06 AM EST) IgE 117 <=214 kU/L [facility] Comment:Pediatric age-specif ic reference ranges are reflected in result ranges. Blood 12/04/2023 11:0 6 AM EST 12/05/2023 7:17 AM EST Narrative Resulting Agency Comment Spec In Lab Dalia Ramos MD IMMUNOLOGY ORDERA BLES Performing Organization Address [facility] de Phone Number [facility] [place] [address] * TSH Early (12/04/2023 11:06 AM EST) TSH 0.99 0.27 - 4.20 mcIU/mL [facility] Comment: Reference Interval (mcIU/mL): Females: ??First Trimester: 0.23-3.88 ??Second Trimester: 0.22-3.90 ??Third Trimester: 0.44-4.66 Blood 12/04/2023 11:0 6 AM EST 12/04/2023 11:15 AM EST Narrative Resulting Agency Comment Spec In Lab Dalia Ramos MD CHEMISTRY ORDERAB LES Performing Organization Address City/State/[facility] Co de Phone Number [facility] [place] [address] documented in this encounter Visit Diagnoses Diagnosis Chronic idiopathic urticaria Idiopathic urticaria Chronic rhinitis Gender dysphoria Gender identity disorder in children documented in this encounter Care Teams Python Programmer Relationship Specialty Start Date End Date Brittani Moulton APRN [address] [facility] [place] [address] PCP - General Geriatric Medicine 11/06/23 documented as of this encounter
[2024-04-24 16:12] LABS: Anion Gap 8.4 mmol/L (3-11); BUN 13 mg/dL (7-18); CO2 30.6 mmol/L (21.0-32.0); CREATININE 0.9 mg/dL (0.55-1.02); Calcium 9.2 mg/dL (8.5-10.1); Calculated LDL 62 mg/dL (<100); Chloride 103 mmol/L (98-107); Cholesterol 156 mg/dL (<200); Estimated GFR 84.97 (mL/min/1.73m2); Glucose 96 mg/dL (74-106); HDL Cholesterol 76 mg/dL (40-60); Potassium 3.8 mmol/L (3.5-5.1); Sodium 142 mmol/L (136-145); Triglyceride 93 mg/dL (<150)
== END 2024-04-24 01:08 | disposition home or self-care (01) ==
LOC: LBO 01:07
PROVIDERS: PCP Nurse Practitioner Adult Health; Visit Provider Nurse Practitioner Adult Health
DX: Z13.220 Encounter for screening for lipoid disorders (principal); Z13.1 Encounter for screening for diabetes mellitus
CPT/HCPCS: 36415; 80048; 80061